=== PATIENT | female | born 1995 | race African-American/Black ===

== ENCOUNTER 2017-11-16 05:27 | Emergency (ER) | payer MEDICAID ==
[~2017-11-16] VITALS: Ht 182.9 cm; Wt 94.0 kg
[2017-11-16 10:22] VITALS: BP 122/80
== END 2017-11-16 11:05 | disposition home or self-care (01) ==
LOC: ED 06:29
DX: F10.120 Alcohol abuse with intoxication, uncomplicated (principal)
CPT/HCPCS: 99283